=== PATIENT | female | born 1995 | race Caucasian/White ===

== ENCOUNTER 2023-12-14 04:12 | Inpatient (IN) | payer OTHER ==
[2023-12-14] MEDS ORDERED: METHYLERGONOVINE 0.2 MG/ML 1 ML AMP IM PRN (05:05)
[2023-12-14] MEDS ORDERED: TERBUTALINE 1 MG/ML VIAL SQ PRN (05:05)
[2023-12-14] MEDS ORDERED: miSOPROStoL 200 MCG TAB PO PRN (05:05)
[2023-12-14] MEDS ORDERED: OXYTOCIN 10 UNIT/ML 1 ML VIAL IM PRN (05:05)
[2023-12-14] MEDS ORDERED: TRANEXAMIC 1,000 MG/100ML-NACL 1,000 MG in EMPTY BAG 1 BAG IV PRN (05:05)
[2023-12-14] MEDS ORDERED: CARBOPROST TROMETHAMINE 250 MCG/ML 1 ML AMP IM PRN (05:05)
[2023-12-14] MEDS: LACTATED RINGERS 1,000 ML IV SCH (05:20)
[2023-12-14 05:47] LABS: Basophils % (A) 0 %; Eosinophils # (A) 0.1 k/uL (0-0.7); Eosinophils % (A) 1 %; HCT 39.5 % (34.0-46.0); HGB 13.6 gm/dL (11.4-16.0); Lymphocytes # (A) 2.3 k/uL (1.0-4.8); Lymphocytes % (A) 16 %; MCH 29.1 pg (25.0-35.0); MCHC 34.5 g/dL (31.0-37.0); MCV 84.2 fL (80.0-100.0); Mean Platelet Volume 9.7; Monocytes # (A) 0.7 k/uL (0-1.0); Monocytes % (A) 5 %; Neutrophils # (A) 10.5 k/uL (1.3-7.7); Neutrophils % (A) 75 %; Platelet Count 233 k/uL (150-450); RBC 4.69 m/uL (3.80-5.40); RDW 13.7 % (11.5-15.5)
[2023-12-14 05:58] LABS: ALT 16 U/L (4-34); AST 24 U/L (14-36); African American GFR (CKD) >90 (>60 ml/min/1.73 sqM); Blood Urea Nitrogen 8 mg/dL (7-17); LDH 205 U/L (120-246); Non-African American GFR(CKD) >90 (>60 ml/min/1.73 sqM); Uric Acid 3.2 mg/dL (3.7-7.4)
[2023-12-14] MEDS ORDERED: ROPIVACAINE 5 MG/ML 30 ML VIAL ONE (06:16)
[2023-12-14] MEDS ORDERED: fentaNYL (PF) 50 MCG/ML 5 ML AMP ONE (06:16)
[2023-12-14] MEDS ORDERED: SODIUM CHLORIDE 0.9% 250 ML BAG ONE (06:16)
[2023-12-14 06:23] LABS: Creatinine,Urine Random 36.2 mg/dL; Protein/Creatinine Ratio,Urine 1.298
[2023-12-14 06:36] LABS: Amorphous Sediment,Urine Rare /hpf; Appearance,Urine Turbid (Clear); Bacteria,Urine Rare /hpf; Bilirubin,Urine Negative (Negative); Blood,Urine Small (Negative); Budding Yeast,Urine Rare /hpf; Color,Urine Colorless; Glucose,Urine (UA) Negative (Negative); Ketones,Urine Negative (Negative); Leukocyte Esterase,Urine Moderate (Negative); Nitrite,Urine Negative (Negative); Protein,Urine Trace (Negative); RBC,Urine 11 /hpf (0-5); Specific Gravity,Urine 1.008 (1.001-1.035); Squamous Epithelial Cell,Urine 2 /hpf (0-4); Urobilinogen,Urine <2.0 mg/dL (<2.0); WBC,Urine 20 /hpf (0-5)
[2023-12-14] MEDS ORDERED: ROPIVACAINE 225 MG, fentaNYL (PF). 450 MCG in SODIUM CHLORIDE 0.9% 171 ML EPIDURAL ONE (08:30)
[2023-12-14 09:02] LABS: INR 0.9 (<1.2); Partial Thromboplastin Time 24.3 sec (22.0-30.0)
[2023-12-14] MEDS: OXYTOCIN 30 UNITS/500 ML NS 30 UNIT in SALINE 1 500ML.BAG IV SCH (11:30)
--- NOTE | 2023-12-14 12:47 | P.HPOB ---
History of Present Illness H&P Date: 12/14/23 Chief Complaint: Labor at 37-6/7 weeks' This is a 28-year-old 1 para 0 woman with an estimated due date of 12/29/2023 who presents at 37-6/7 weeks gestation in spontaneous active labor with spontaneous rupture of membranes at approximately 3:30 AM. Following presentation to labor and delivery triage rupture of membranes was confirmed and light meconium-stained fluid was noted. She was found to be 5+ centimeters dilated and actively mattie. has been uncomplicated. She is known Rh-. Her estimated due date was based on LMP consistent with first trimester ultrasound. Laboratory data: Blood type O-, antibody screen negative, rubella immune, he patitis B surface antigen negative, HIV negative, gonorrhea and clinic cultures negative, group B strep negative, glucose tolerance testing within normal limits. Past medical history: Narrow angle glaucoma past surgical history: none Social history: , negative tobacco, drug use Family history: Noncontributory Review of Systems All systems: negative Past Medical History Past Medical History: No Reported History History of Any Multi-Drug Resistant Organisms: None Reported Smoking Status: Never smoker Past Drug Use History: None Reported Medications and Allergies Home Medications Medication Instructions Recorded Confirmed Type Calcium Carbonate [Tums] 500 mg PO QID PRN 12/14/23 12/14/23 History Doxylamine Succinate [Unisom] 25 mg PO HS 12/14/23 12/14/23 History Vit No.179/Iron/Folic 1 each PO DAILY 12/14/23 12/14/23 History [ Tablet] Allergies Allergy/AdvReac Type Severity Reaction Status Date / Time No Known Allergies Allergy Verified 12/14/23 04:28 Exam Vital Signs Temp Pulse Pulse Resp BP BP Pulse Ox 12/14/23 05:05 98.3 F 118 H 16 159/96 12/14/23 04:45 98.3 F 93 20 159/96 98 Intake and Output 12/13/23 12/14/23 12/14/23 22:59 06:59 14:59 Output Total 400 Balance -400 Output: Estimated Blood Loss 400 Other: Weight 73.936 kg Upon my initial evaluation the patient is actively in the second stage of labor. Please see [facility] records. Results Result Diagrams: 12/14/23 05:30 12/14/23 05:30 Abnormal Lab Results - Last 24 Hours (Table) 12/14/23 12/14/23 12/14/23 Range/Units 05:30 05:30 05:36 WBC 14.0 H (3.8-10.6) k/uL Neutrophils # 10.5 H (1.3-7.7) k/uL Uric Acid 3.2 L (3.7-7.4) mg/dL Urine Appearance Turbid H (Clear) Urine Protein Trace H (Negative) Urine Blood Small H (Negative) Ur Leukocyte Esterase Moderate H (Negative) Urine RBC 11 H (0-5) /hpf Urine WBC 20 H (0-5) /hpf Amorphous Sediment Rare H (None) /hpf Urine Bacteria Rare H (None) /hpf Urine Yeast (Budding) Rare H (None) /hpf Assessment and Plan (1) 37 weeks gestation of Current Visit: Yes Status: Acute Code(s): Z3A.37 - 37 WEEKS GESTATION OF SNOMED Code(s): 39028926 (2) Spontaneous onset of labor Current Visit: Yes Status: Acute Code(s): TXR2470 - SNOMED Code(s): 80219869 (3) Spontaneous rupture of membranes Current Visit: Yes Status: Acute Code(s): JRX2951 - SNOMED Code(s): 176706066 (4) Rh negative, maternal Current Visit: Yes Status: Acute Code(s): O26.899 - OTH RELATED CONDITIONS, UNSPECIFIED TRIMESTER; Z67.91 - UNSPECIFIED BLOOD TYPE, RH NEGATIVE SNOMED Code(s): 729873413 (5) Meconium in amniotic fluid Current Visit: Yes Status: Acute Code(s): P96.83 - MECONIUM STAINING SNOMED Code(s): 2905040 Plan: 28-year-old 1 para 0 admitted in spontaneous active labor with spontaneous rupture of membranes at 37-6/7 weeks. She is group B strep negative and Rh-. On anticipate normal spontaneous vaginal delivery.
[2023-12-14] MEDS ORDERED: ZOLPIDEM 5 MG TAB PO PRN (12:50)
[2023-12-14] MEDS ORDERED: diphenhydrAMINE 25 MG CAP PO PRN (12:50)
[2023-12-14] MEDS ORDERED: LANOLIN CREAM 1 GM TUBE TOPICAL PRN (12:50)
[2023-12-14] MEDS ORDERED: HYDROCORTISONE 2.5% RECTAL CREAM 30 GM TUBE RECTAL PRN (12:50)
[2023-12-14] MEDS ORDERED: SIMETHICONE 80 MG CHEWABLE PO PRN (12:50)
[2023-12-14] MEDS ORDERED: diphenhydrAMINE 50 MG/ML 1 ML VIAL IVP PRN ×2 (12:50)
[2023-12-14] MEDS ORDERED: ACETAMINOPHEN TAB 325 MG TAB PO PRN (12:50)
[2023-12-14] MEDS ORDERED: diphenhydrAMINE 50 MG CAP PO PRN (12:50)
--- NOTE | 2023-12-14 12:50 | P.PROBDLV ---
Vaginal Delivery Note - . Vaginal Delivery Note: Findings: Male infant in the vertex direct occiput anterior position with Apgars of 8 at 1 minute and 9 at 5 minutes weighing 7 lbs. 7 oz., 3395 g. Second- degree midline episiotomy. EBL approximately 300 mL's. Intact, three-vessel cord placenta. Delivery summary: This is a 28 showed 1 para 0 woman who presented with spontaneous onset of labor and rupture of membranes at 37-6/7 weeks. Thin meconium-stained fluid was noted with confirmation of rupture of membranes. Following admission she did receive an epidural anesthetic and had rapid progression to complete cervical dilation. She did have a prolonged second stage of labor of approximately 3-1/2 hours with category 1 heart tones. She did make progressive descent of the vertex however Pitocin augmentation was initiated with maternal exhaustion. When she eventually pushed to she was repositioned, prepped and draped in the dorsal modified Cali position. The perineum was infused with lidocaine and a small second-degree midline episiotomy was cut with the patient's verbal consent. With additional maternal effort times to the head delivered from the direct occiput anterior position and restitute to right occiput anterior position. The anterior followed by the posterior shoulders were then delivered without difficulty and the rest of the infant delivered onto the field. The nose and mouth were bulb suctioned and the infant was placed on the maternal abdomen. Eventually the cord was clamped and cut. Apgars 8 at 1 minute and 9 at 5 minutes. The perineum was inspected and a second-degree midline laceration consistent with episiotomy was noted. This was further infused with lidocaine and was part repaired with 3-0 Vicryl suture in the usual fashion. After approximately 20 minute stage of labor an intact, three-vessel cord placenta was expressed. The patient received Pitocin in the third stage of labor. The vagina was reinspected and no further lacerations were noted. The uterus was massaged and was firm at the level of the umbilicus. EBL was approximately 300 mL's. Both mother and were doing well post delivery in the room.
[2023-12-14] MEDS ORDERED: OXYTOCIN 30 UNITS/500 ML NS 30 UNIT in SALINE 1 500ML.BAG IV SCH (13:00)
[2023-12-14] MEDS: IBUPROFEN 600 MG TAB PO SCH (14:01)
[2023-12-14] MEDS: LIDOCAINE 0.5% (PF) 5 MG/ML (50 ML SDV) SQ PRN (15:03)
[2023-12-14] MEDS: BENZOCAINE/MENTHOL SPRAY 1 GM/SPRAY AEROSOL TOPICAL PRN (15:04)
[2023-12-14] MEDS: SENNOSIDES-DOCUSATE SODIUM 1 EACH TAB PO SCH (20:22)
[2023-12-15 07:44] LABS: Basophils % (A) 0 %; Eosinophils # (A) 0.1 k/uL (0-0.7); Eosinophils % (A) 0 %; HCT 33.1 % (34.0-46.0); HGB 10.8 gm/dL (11.4-16.0); Lymphocytes # (A) 2.1 k/uL (1.0-4.8); Lymphocytes % (A) 18 %; MCH 28.5 pg (25.0-35.0); MCHC 32.6 g/dL (31.0-37.0); MCV 87.6 fL (80.0-100.0); Mean Platelet Volume 8.8; Monocytes # (A) 0.7 k/uL (0-1.0); Monocytes % (A) 6 %; Neutrophils % (A) 75 %; Platelet Count 192 k/uL (150-450); RBC 3.78 m/uL (3.80-5.40); RDW 13.6 % (11.5-15.5)
--- NOTE | 2023-12-15 13:32 | P.DS ---
Providers Date of admission: 12/14/23 04:47 Expected date of discharge: 12/15/23 Attending physician: Roz Poole Primary care physician: Stated None - Discharge Diagnosis(es) (1) Normal spontaneous vaginal delivery Current Visit: Yes Status: Acute Hospital Course: The patient is a 28-year-old 1 para 0 admitted at 37-6/7 weeks by good dating parameters in early active labor with spontaneous rupture of membranes. She was found to have light meconium stained fluid. Her was essentially uncomplicated though she is Rh- and received RhoGAM at 28 weeks. On labor and delivery, she had an epidural catheter placed for analgesia and then progressed to complete. She was allowed to labor down for some time and then began pushing. She did pushed for over 3 hours but ultimately pushed to a normal spontaneous vaginal delivery of a viable 7 pound 7 ounce baby boy with Apgars of 8 at 1 minute and 9 at 5 minutes. Her course was unremarkable with vital signs remaining stable and her temperature was afebrile throughout. She was deemed stable for discharge on day #1 was discharged home to follow-up in the office in 6 weeks time routinely. Discharge instructions included calling for any significantly increased bleeding or foul- smelling lochia, significantly increased fever or abdominal pain, perineal compl aints, breast complaints, or anything else that concerned her. She was additionally instructed to have nothing in the vagina for at least 6 weeks time to include intercourse. She understood her instructions and agrees to follow-up as noted above. Discharge medications included continued vitamins as she has opted to breast-feed. She was otherwise to use [id number] analgesic pain medications. Maternal blood type is O- and rubella status is immune. Procedures: #1. Epidural analgesia #2. Normal spontaneous vaginal delivery #3. Second- degree midline episiotomy and repair Patient Condition at Discharge: Stable Plan - Discharge Summary New Discharge Prescriptions: No Action Calcium Carbonate [Tums] 500 mg PO QID PRN PRN Reason: Heartburn Vit No.179/Iron/Folic [ Tablet] 1 each PO DAILY Doxylamine Succinate [Unisom] 25 mg PO HS Discharge Medication List Calcium Carbonate [Tums] 500 mg PO QID PRN 12/14/23 [History] Doxylamine Succinate [Unisom] 25 mg PO HS 12/14/23 [History] Vit No.179/Iron/Folic [ Tablet] 1 each PO DAILY 12/14/23 [History] Follow up Appointment(s)/Referral(s): Roz Poole MD [STAFF PHYSICIAN] - 6 Weeks Discharge Disposition: HOME SELF-CARE
[2023-12-15 15:21] VITALS: BP 114/78; PULSE 96; RESP 18; TEMP 98
== END 2023-12-15 17:15 | disposition home or self-care (01) | DRG 807 ==
LOC: FBPOP 04:12 → 4FBP 04:47
PROVIDERS: ADMIT Obstetrics & Gynecology; ATTEND Obstetrics & Gynecology
PROC: 0W8NXZZ Division of Female Perineum, External Approach (ICD-10-PCS; principal; 2023-12-14)
PROC: 10E0XZZ Delivery of Products of Conception, External Approach (ICD-10-PCS; principal; 2023-12-14)
DX: O77.0 Labor and delivery complicated by meconium in amniotic fluid (principal); O63.1 Prolonged second stage (of labor); O75.81 Maternal exhaustion complicating labor and delivery; Z28.310 Unvaccinated for COVID-19; Z79.899 Other long term (current) drug therapy; Z3A.37 37 weeks gestation of pregnancy; Z37.0 Single live birth
CPT/HCPCS: 59025; 81001; 82565; 82570; 83615; 84112; 84156; 84450; 84460; 84520; 84550; 85025; 85384; 85610; 85730; 86850; 86870; 86880; 86900; 86901; 99213